=== PATIENT | male | born 1985 | race Two or more races ===

== ENCOUNTER 2023-09-28 22:15 | Emergency (ER) | payer OTHER ==
[~2023-09-28] VITALS: Ht 177.8 cm; Wt 45.0 kg
[2023-09-28] MEDS ORDERED: IPRATROPIUM BROM 0.5 MG/2.5ML INH SOL NEB ONE (22:45)
[2023-09-28] MEDS ORDERED: ALBUTEROL SULF 2.5 MG/0.5ML(0.5%) NEB SOLN NEB ONE (22:45)
[2023-09-29 01:57] VITALS: BP 127/50; PULSE 109; RESP 18; TEMP 97.8; O2SAT 97
[2023-09-29] MEDS ORDERED: PRED20TA2 PO (02:30)
[2023-09-29] MEDS ORDERED: ALBU108A5 IN (02:30)
== END 2023-09-29 02:35 | disposition home or self-care (01) ==
LOC: ER 22:15
DX: J45.901 Unspecified asthma with (acute) exacerbation (principal)
CPT/HCPCS: 94640; 99283; J7644

== ENCOUNTER 2024-03-30 20:09 | Inpatient (IN) | payer MEDICAID, OTHER ==
[~2024-03-30] VITALS: Ht 177.8 cm; Wt 96.4 kg
[~2024-03-30 20:09] MED LIST: ALBU108A5 IN; PRED20TA2 PO
[2024-03-30] MEDS: ALBUTEROL SULF 2.5 MG/0.5ML(0.5%) NEB SOLN NEB ONE ×2 (20:40→23:36)
[2024-03-30] MEDS: IPRATROPIUM BROM 0.5 MG/2.5ML INH SOL NEB ONE ×2 (20:40→23:37)
[2024-03-30] MEDS: methylPREDNISolone SOD SUCC 125 MG/2 ML VL IV ONE (21:01)
[2024-03-30 21:40] LABS: Basophils # (auto) 0.1 10 ^3/uL (0-0.2); Basophils % (auto) 0.9 % (0.0-2.0); Eosinophils # (auto) 1.3 10 ^3/uL (0-0.8); Eosinophils % (auto) 9.8 % (0.0-7.0); Hematocrit 50.9 % (41.0-53.0); Hemoglobin 17.1 g/dL (13.5-17.5); Lymphocytes % (auto) 21.9 % (10.0-50.0); Mean Corpuscular Hemoglobin 30.2 pg (28.0-32.0); Mean Corpuscular Hgb Conc. 33.7 g/dL (32.0-36.0); Mean Corpuscular Volume 89.6 fL (80.0-100.0); Monocytes # (auto) 1.2 10 ^3/uL (0-1.3); Monocytes % (auto) 8.7 % (0.0-12.0); Neutrophils # (auto) 8.1 10 ^3/uL (1.6-8.6); Neutrophils % (auto) 58.7 % (37.0-80.0); Nucleated Red Blood Cells % 0.1 %; Red Blood Cells 5.68 10^6/uL (4.5-5.90); White Blood Cell 13.7 10^3/uL (4.4-10.8)
[2024-03-30 21:48] LABS: COVID19 ANTIGEN SOFIA FIA NEGATIVE (NEGATIVE)
[2024-03-30 21:57] LABS: Chloride 110 mmol/L (98-107); Potassium 3.6 mmol/L (3.5-5.1); Sodium 142 mmol/L (136-145)
[2024-03-30 21:58] LABS: Anion Gap 8 (5-15); Calcium 9.8 mg/dL (8.7-10.4); Carbon Dioxide 24 mmol/L (20-30)
[2024-03-30 22:03] LABS: BUN/Creatinine Ratio 8.4 (10.0-20.0); Blood Urea Nitrogen 8 mg/dL (9-23); Glucose 93 mg/dL (74-106)
[2024-03-31] VITALS (11 sets, daily range): BP systolic 115–130; BP diastolic 74–84; PULSE 76–115; RESP 12–20; TEMP 97.6–98.1; O2SAT 90–98
[2024-03-31 00:14] LABS: Rapid Influenza A Negative (Negative); Rapid Influenza B Negative (Negative)
[2024-03-31] MEDS ORDERED: ONDANSETRON HCL 4 MG/2 ML VIAL IV PRN (02:30)
[2024-03-31] MEDS ORDERED: HYDROcodone-ACET 5/325MG TAB PO PRN (02:30)
[2024-03-31] MEDS ORDERED: DOCUSATE SOD 100 MG CAP PO PRN (02:30)
[2024-03-31] MEDS: cefTRIAXone 1GM/50ML D5W 50 ML IV ONE (04:32)
[2024-03-31] MEDS: AZITHROMYCIN 500MG/ 250ML 250 ML IV ONE (04:50)
[2024-03-31 05:27] LABS: Basophils # (auto) 0.1 10 ^3/uL (0-0.2); Basophils % (auto) 0.6 % (0.0-2.0); Eosinophils # (auto) 0 10 ^3/uL (0-0.8); Eosinophils % (auto) 0.1 % (0.0-7.0); Hematocrit 49.1 % (41.0-53.0); Hemoglobin 16.4 g/dL (13.5-17.5); Lymphocytes # (auto) 0.8 10 ^3/uL (0.4-5.4); Lymphocytes % (auto) 7.3 % (10.0-50.0); Mean Corpuscular Hemoglobin 29.9 pg (28.0-32.0); Mean Corpuscular Hgb Conc. 33.4 g/dL (32.0-36.0); Mean Corpuscular Volume 89.4 fL (80.0-100.0); Monocytes # (auto) 0 10 ^3/uL (0-1.3); Monocytes % (auto) 0.3 % (0.0-12.0); Neutrophils # (auto) 9.5 10 ^3/uL (1.6-8.6); Neutrophils % (auto) 91.7 % (37.0-80.0); Nucleated Red Blood Cells % 0.1 %; Red Cell Distribution Width 14.2 % (11.8-14.3); White Blood Cell 10.3 10^3/uL (4.4-10.8)
[2024-03-31 05:43] LABS: Chloride 107 mmol/L (98-107); Potassium 4.7 mmol/L (3.5-5.1); Sodium 140 mmol/L (136-145)
[2024-03-31 05:44] LABS: Anion Gap 7 (5-15); Carbon Dioxide 26 mmol/L (20-30)
[2024-03-31 05:45] LABS: Calcium 10.1 mg/dL (8.7-10.4)
[2024-03-31 05:49] LABS: BUN/Creatinine Ratio 8.6 (10.0-20.0); Blood Urea Nitrogen 9 mg/dL (9-23)
[2024-03-31 05:59] LABS: Glucose 207 mg/dL (74-106)
[2024-03-31] MEDS ORDERED: MORPHINE SULFATE INJ 2 MG/ml SYRG IV PRN (06:00)
[2024-03-31] MEDS ORDERED: NITROGLYCERIN 0.4 MG SL TAB SL PRN (06:00)
[2024-03-31] MEDS: SODIUM CHLOR 0.9% PF (SALINE LOCK) 10ML VIAL/SYR IV SCH (06:03)
[2024-03-31] MEDS: methylPREDNISolone SOD SUCC 40 MG/ML VL IV SCH (06:19)
[2024-03-31] MEDS: FAMOTIDINE (10MG/ML) 2ML VL IV SCH (10:11)
[2024-03-31] MEDS: IPRATROPIUM BROM 0.5 MG/2.5ML INH SOL NEB PRN (18:58)
[2024-03-31] MEDS: ALBUTEROL SULF 2.5 MG/0.5ML(0.5%) NEB SOLN NEB PRN (18:59)
[2024-03-31] MEDS: ACETAMINOPHEN 325 MG TAB PO PRN (20:15)
[2024-04-01] VITALS (9 sets, daily range): BP systolic 109–117; BP diastolic 63–75; PULSE 58–109; RESP 16–20; TEMP 36.4–36.8; O2SAT 94–98
[2024-04-01 06:19] LABS: Alanine Aminotransferase 35 U/L (7-40); Albumin 4.5 g/dL (3.2-4.8); Alkaline Phosphatase 88 U/L (46-116); Anion Gap 8 (5-15); Aspartate Aminotransferase 14 U/L (13-40); BUN/Creatinine Ratio 11.6 (10.0-20.0); Bilirubin, Total 0.4 mg/dL (0.2-1.0); Blood Urea Nitrogen 10 mg/dL (9-23); Calcium 9.8 mg/dL (8.5-10.1); Carbon Dioxide 23 mmol/L (20-30); Chloride 105 mmol/L (98-107); Glucose 134 mg/dL (74-106); Potassium 4.9 mmol/L (3.5-5.1); Sodium 136 mmol/L (136-145); Total Protein 7.6 g/dL (5.7-8.2)
[2024-04-01 07:38] LABS: Basophils # (auto) 0 10 ^3/uL (0-0.2); Basophils % (auto) 0.1 % (0.0-2.0); Eosinophils # (auto) 0 10 ^3/uL (0-0.8); Hematocrit 49.8 % (41.0-53.0); Hemoglobin 16.3 g/dL (13.5-17.5); Lymphocytes # (auto) 1.2 10 ^3/uL (0.4-5.4); Lymphocytes % (auto) 5.4 % (10.0-50.0); Mean Corpuscular Hemoglobin 29.8 pg (28.0-32.0); Mean Corpuscular Hgb Conc. 32.8 g/dL (32.0-36.0); Mean Corpuscular Volume 90.9 fL (80.0-100.0); Monocytes # (auto) 0.5 10 ^3/uL (0-1.3); Monocytes % (auto) 2.2 % (0.0-12.0); Neutrophils # (auto) 20.8 10 ^3/uL (1.6-8.6); Neutrophils % (auto) 92.3 % (37.0-80.0); Nucleated Red Blood Cells % 0.1 %; Red Blood Cells 5.48 10^6/uL (4.5-5.90); Red Cell Distribution Width 14.1 % (11.8-14.3); White Blood Cell 22.5 10^3/uL (4.4-10.8)
[2024-04-01] MEDS: cefTRIAXone 1GM/50ML D5W 50 ML IV SCH (10:10)
[2024-04-01] MEDS ORDERED: ALBU108A5 IN (16:10)
[2024-04-01] MEDS ORDERED: FLUT250M2 INH (16:10)
[2024-04-01] MEDS ORDERED: METH4PAK PO (16:10)
[2024-04-01] MEDS ORDERED: AZIT500T66 PO (16:11)
== END 2024-04-01 18:15 | disposition home or self-care (01) | DRG 145 ==
LOC: ER 20:09 → TELE 03-31 05:49 → TELE-E-ADS 03-31 05:49
PROVIDERS: ADMIT Nurse Practitioner Family; ATTEND Nurse Practitioner Family
DX: J20.9 Acute bronchitis, unspecified (principal); J96.00 Acute respiratory failure, unspecified whether with hypoxia or hypercapnia; J45.901 Unspecified asthma with (acute) exacerbation; D72.829 Elevated white blood cell count, unspecified; T38.0X5A Adverse effect of glucocorticoids and synthetic analogues, initial encounter; Z91.199 Patient's noncompliance with other medical treatment and regimen due to unspecified reason; Z79.899 Other long term (current) drug therapy; Y92.89 Other specified places as the place of occurrence of the external cause
CPT/HCPCS: 36415; 71045; 80048; 80053; 83036; 83880; 85025; 87426; 87804; 94640; 96365; 96368; 96375; G0378; J3490

== ENCOUNTER 2024-11-19 08:08 | Emergency (ER) | payer MEDICAID ==
[~2024-11-19] VITALS: Ht 177.8 cm; Wt 96.4 kg
[~2024-11-19 08:08] MED LIST changes: +AZIT500T66 PO; +FLUT250M2 INH; +METH4PAK PO
[2024-11-19 09:05] VITALS: PULSE 126; RESP 16; O2SAT 98
[2024-11-19 10:15] VITALS: BP 111/77; PULSE 125; RESP 18; TEMP 98; O2SAT 95
--- NOTE | 2024-11-19 10:25 | DVH ---
CHEST RADIOGRAPH Indication: cough/r/o pna Technique: Frontal and lateral view of the chest was obtained Comparison: None FINDINGS: Lines and Tubes: None Lungs: Left mid and lower lobe pneumonia. Pleura: No effusion. No pneumothorax. Cardiomediastinal contours: Unremarkable Bones: Unremarkable IMPRESSION: Left mid and lower lobe pneumonia.
[2024-11-19] MEDS ORDERED: AUG875T PO (10:32)
[2024-11-19] MEDS ORDERED: GUAI600T78 PO (10:32)
[2024-11-19] MEDS ORDERED: BENZ100C97 PO (10:32)
[2024-11-19] MEDS ORDERED: PROM1SOL4 PO (10:32)
--- NOTE | 2024-11-19 10:32 | ED.PDOC ---
SOB-HPI HPI Comments 39-year-old with no MHx presents with a chief complaint of URI symptoms for two weeks. Complains of fevers productive cough with yellow phlegm body aches fatigue. Children had similar symptoms that have resolved. Taking 600 of ibuprofen. Denies persistent chest pain, shortness of breath, leg swelling Denies history of asthma nor any breathing conditions Denies history of pneumonia Denies recent international travel Chief Complaint: Flu like Time Seen by MD: 08:40 Primary Care Provider: NONE Reviewed notes: Nurses Notes, Medications, Allergies Information Source: Patient Mode of Arrival: Ambulatory Past Medical History PAST MEDICAL HISTORY: Asthma Surgical History: Denies all surgeries Family History Family History: Reviewed,noncontributory to illness, No family hx of Cancer, No family hx of DM, No family hx of Heart ora, No family hx of HTN, No family hx ofKidney ora, No family hx of Liver ora, No family hx of Lung ora, No family hx of Stroke Social History Smoker: Non-Smoker Alcohol: Denies ETOH Use Drugs: Denies Drug Use All Other Systems: Reviewed and Negative (Per HPI) Physical Exam General Appearance: No Apparent Distress, Normal HEENT: Normal ENT Inspection, Pharynx Normal, TMs Normal Neck: Full Range of Motion, Non-Tender, Normal, Normal Inspection Respiratory: Chest Non-Tender, Lungs Clear, No Accessory Muscle Use, No Respiratory Distress, Normal Breath Sounds Cardiovascular: No Edema, No JVD, No Murmur, No Gallop, Normal Peripheral Pulses, Regular Rate/Rhythm Breast Exam: Deferred Gastrointestinal: No Organomegaly, Non Tender, No Pulsatile Mass, Normal Bowel Sounds, Soft Genitalia: Deferred Pelvic: Deferred Rectal: Deferred Extremities: No calf tenderness, Normal capillary refill, Normal inspection, Normal range of motion, Non-tender, No pedal edema Musculoskeletal : Apperance: Normal Neurologic: Alert, No Motor Deficits, Normal Affect, Normal Mood, No Sensory Deficits Cerebellar Function: Normal Reflexes: Normal Skin: Dry, Normal Color, Warm Lymphatic: No Adenopathy Was a procedure done? Was a procedure done?: No Differential Dx Differential Diagnosis: Asthma, Pneumonia, URI X-Ray, Labs, Meds, VS Vital Signs Date Time Temp Pulse Resp B/P (MAP) Pulse Ox O2 Delivery O2 Flow Rate FiO2 11/19/24 10:15 125 18 95 Room Air 11/19/24 10:15 98.0 125 18 111/77 (88) 95 98.0 11/19/24 09:05 97.8 126 18 112/84 (93) 98 97.8 11/19/24 09:05 126 16 98 Room Air* 0 21 11/19/24 08:32 18 93 Room Air* 0 21 11/19/24 08:27 98.2 119 18 129/78 (95) 93 Current Medications Medications (Trade) Dose Ordered Sig/Adam Route Start Time Stop Time Status Last Admin Ceftriaxone Sodium (Rocephin) 1,000 mg ONCE ONCE IM 11/19/24 10:45 11/19/24 10:46 DC 11/19/24 10:36 X-Ray, Labs, Meds, VS Comment The patient's presentation and chest x-ray findings are consistent with pneumonia. In the ED, the patient was given IV ceftriaxone to cover for community-acquired pneumonia, The patient is overall well-appearing and does not appear to be clinically tox ic. Therefore, the patient is a good candidate for outpatient treatment. The patient was given Antibiotics to treat for pneumonia. The patient was reassessed throughout the ED visit and remained stable. The patient did not require any supplemental oxygen while in the ED. The patient was able to ambulate as well as tolerate p.o. intake in the ED. discussed the management plan with the patient who was in agreement, strict return precautions to the ED were given On reevaluation, patient had symptomatic improvement. Patient is stable for discharge at this time. External notes reviewed. Test results and diagnostic imaging interpreted. All diagnostic findings, discharge care, education and instructions provided Follow-up with PCP in 2 to 3 days Patient verbalized understanding and agreed to treatment plan Vital signs stable, afebrile, no acute distress noted Patient ambulatory with strong steady gait Advised to return precautions for any new or worsening symptoms, return to ER immediately for re-evaluation Patient is aware that the purpose of this visit was for an acute medical emergency requiring emergent stabilization. Chronic conditions, including malignancies have not been ruled out. Patient is instructed to follow up with PCP as directed and discharge instructions for continued care and workup. If unable to arrange follow-up, patient is to return to the emergency department for reassessment. Patient (parent or legal guardian if applicable) was given verbal and written discharge instructions and acknowledges understanding. Time of 1ST Reevaluation: 10:32 Reevaluation 1ST: Improved Patient Education/Counseling: Diagnosis, Treatment Family Education/Counseling: Diagnosis, Treatment Departure 1 Departure Time of Disposition: 10:30 Impression: Primary Impression: PNA (pneumonia) Qualified Codes: J18.9 - Pneumonia, unspecified organism Disposition: HOME / SELF CARE / HOMELESS Condition: Fair e-Prescriptions Guaifenesin (Mucinex) 600 Mg Tab 1 TAB PO BID for 10 Days, #20 TAB 0 Refills Prov: ANDERSON MASSEY [employer] 11/19/24 Benzonatate (Benzonatate) 100 Mg Cap 1 CAP PO TID for 10 Days, #30 CAP 0 Refills Prov: ANDERSON MASSEY [employer] 11/19/24 Promethazine-Dm (Promethazine Dm 6.25-15 mg/5Ml) 1 April April 5 ML PO TID for 10 Days, #150 ML 0 Refills Prov: ANDERSON MASSEY NP 11/19/24 Amoxicillin & Pot Clavulanate (AUGMENTIN TABLET) 875 Mg Tb 875 MG PO BID for 7 Days, #14 TAB 0 Refills Prov: ANDERSON MASSEY [employer] 11/19/24 Critical Care Note Critical Care Time?: No Stability Stability form required: No Heart Score Heart Score: Heart Score Response (Comments) Value History N/A 0 EKG N/A 0 Age N/A 0 Risk Factors N/A 0 Troponin N/A 0 Total 0 ANDERSON MASSEY NP Nov 19, 2024 10:32
[2024-11-19] MEDS: cefTRIAXone SOD 1,000 MG VL IM ONE (10:36)
== END 2024-11-19 10:55 | disposition home or self-care (01) ==
LOC: ER 08:08
DX: J18.9 Pneumonia, unspecified organism (principal); J45.909 Unspecified asthma, uncomplicated; R50.9 Fever, unspecified; M79.10 Myalgia, unspecified site
CPT/HCPCS: 71046; 96372; 99283; J0696